=== PATIENT | male | born 1960 | race Two or more races ===

== ENCOUNTER 2019-12-27 21:44 | Emergency (ER) | payer OTHER ==
[~2019-12-27] VITALS: Ht 165.1 cm; Wt 81.6 kg
--- NOTE | 2019-12-27 21:57 | NUR ---
SEEN AND EXAMINED BY KELLY HARTMAN
--- NOTE | 2019-12-27 22:03 | NUR ---
PATIENT CAME TO ER BED 9 C/O RIGHT UPPER ABDOMINAL PAIN RADIATING TO THE LEFT SIDE. PATIENT STATES THAT HE IS ABLE TO URINATE (HE PROVIDED A URINE SAMPLE) AND LAST HAD A BOWEL MOVEMENT EARLIER TODAY. PATIENT STATES THAT WHENEVER HE HAS FOOD, HE FEELS BLOATED. AAOX4. NO SOB. BREATHING EVENLY AND UNLABORED ON ROOM AIR. CONNECTED TO THE MONITOR.
--- NOTE | 2019-12-27 22:06 | NUR ---
PATIENT DENIES NAUSEA, NOR DOES HE WANT PAIN MEDICATION AT THIS TIME.
--- NOTE | 2019-12-27 22:06 | NUR ---
URINE COLLECTED AND SENT TO THE LAB.
--- NOTE | 2019-12-27 22:09 | NUR ---
[employer]RIAL [employer]ODUCTION MANAGER AT BEDSIDE FOR BLOOD DRAW.
[2019-12-27 22:21] LABS: APPEARANCE,URINE CLEAR (CLEAR); BILIRUBIN,URINE SMALL (NEGATIVE); BLOOD, URINE NEGATIVE Ery/uL (NEGATIVE); COLOR,URINE YELLOW (YELLOW); KETONES,URINE NEGATIVE (NEGATIVE); LEUKOCYTE ESTERASE ,URINE NEGATIVE (NEGATIVE); NITRITE, URINE NEGATIVE (NEGATIVE); PROTEIN,URINE NEGATIVE (NEGATIVE); UGLUCOSE NEGATIVE (NEGATIVE); UROBILINOGEN,URINE 0.2 EU/dL (0.2)
[2019-12-27 22:37] LABS: BASOPHILS # (AUTO) 0.1 /CMM (0.0-0.2); BASOPHILS % (AUTO) 0.8 % (0.0-2.0); EOSINOPHILS % (AUTO) 2.8 % (0.0-6.0); HEMATOCRIT 43 % (39-51); HEMOGLOBIN 15.4 g/dL (13.5-17.5); LYMPHOCYTES # (AUTO) 2.7 /CMM (0.8-4.8); LYMPHOCYTES % (AUTO) 29.4 % (20.0-44.0); MEAN CORPUSCULAR HGB CONC 36 g/dl (31.0-36.0); MEAN CORPUSCULAR VOLUME 101 fL (80-96); MONOCYTES # (AUTO) 0.5 /CMM (0.1-1.30); MONOCYTES % (AUTO) 5.9 % (2.0-12.0); NEUTROPHILS # (AUTO) 5.6 /CMM (1.8-8.9); NEUTROPHILS % (AUTO) 61.1 % (43.0-81.0); PLATELET COUNT (AUTO) 160 /CMM (150-450); RED BLOOD CELL COUNT(AUTO) 4.27 MIL/uL (4.5-6.0); WHITE BLOOD COUNT (AUTO) 9.2 K/uL (4.3-11.0)
--- NOTE | 2019-12-27 22:38 | NUR ---
Dannielle ray in ED - 12/27/19 at 2239 by JULIANA US TECH FINSIHED WITH PROCEDURE.
[2019-12-27 22:39] LABS: ALBUMIN 4.2 g/dL (3.4-5.0); BILIRUBIN,DIRECT 0.4 mg/dL (0.0-0.2); CALCIUM, SERUM 9.1 mg/dL (8.5-10.1); CREATININE 1.1 mg/dL (0.6-1.3); POTASSIUM 3.9 mmol/L (3.5-5.1); TOTAL PROTEIN, SERUM 7.6 g/dL (6.4-8.2)
--- NOTE | 2019-12-27 22:44 | NUR ---
US AT BEDSIDE.
[2019-12-27 23:12] LABS: EOSINOPHILS % (MANUAL) 4 % (0-4); LYMPHOCYTES % (MANUAL) 25 % (16-48); MONOCYTES % (MANUAL) 8 % (0-11.0); NEUTROPHILS % (MANUAL) 63 (42-76)
--- NOTE | 2019-12-27 23:49 | NUR ---
Prescriptions provided and explained to the patient not to operate behind any machinery will taking presciption narcotics.
--- NOTE | 2019-12-27 23:49 | NUR ---
Patient discharged to home in stable condition. Written and verbal after care instructions given. Patient verbalizes understanding of instruction.
[2019-12-27 23:50] VITALS: BP 131/84
== END 2019-12-27 23:50 | disposition home or self-care (01) ==
LOC: ER 21:52
DX: R10.11 Right upper quadrant pain (principal); I10 Essential (primary) hypertension; E11.9 Type 2 diabetes mellitus without complications
CPT/HCPCS: 36415; 76705-TC; 80048-TC; 80076-TC; 81000-TC; 83690-TC; 85025-TC

== ENCOUNTER 2021-07-16 18:57 | Emergency (ER) | payer OTHER ==
[~2021-07-16] VITALS: Ht 180.3 cm; Wt 81.6 kg
--- NOTE | 2021-07-16 19:55 | NUR ---
PT A/O X4 C/O OF UPPER BILAT AND LOWER BILAT PAIN X 4 DAYS
[2021-07-16 20:48] LABS: ALBUMIN 3.6 g/dL (3.4-5.0); BILIRUBIN,TOTAL 2.4 mg/dL (0.2-1.0); CREATININE 1.2 mg/dL (0.6-1.3); POTASSIUM 4.1 mmol/L (3.5-5.1); TOTAL PROTEIN, SERUM 6.8 g/dL (6.4-8.2)
[2021-07-16 20:59] LABS: BASOPHILS % (AUTO) 0.4 % (0.0-2.0); EOSINOPHILS % (AUTO) 3.3 % (0.0-6.0); HEMATOCRIT 33 % (39-51); HEMOGLOBIN 11.9 g/dL (13.5-17.5); LYMPHOCYTES # (AUTO) 2.9 K/uL (0.8-4.8); LYMPHOCYTES % (AUTO) 32.7 % (20.0-44.0); MEAN CORPUSCULAR HGB CONC 36 g/dl (31.0-36.0); MEAN CORPUSCULAR VOLUME 102 fL (80-96); MONOCYTES # (AUTO) 0.5 K/uL (0.1-1.30); MONOCYTES % (AUTO) 5.1 % (2.0-12.0); NEUTROPHILS # (AUTO) 5.3 K/uL (1.8-8.9); NEUTROPHILS % (AUTO) 58.5 % (43.0-81.0); PLATELET COUNT (AUTO) 189 K/uL (150-450); RED BLOOD CELL COUNT(AUTO) 3.24 MIL/uL (4.5-6.0)
[2021-07-16 22:30] VITALS: BP 122/76
--- NOTE | 2021-07-16 22:48 | NUR ---
DISCHARGE INSTRUCTIONS GIVEN TO PT
== END 2021-07-16 22:30 | disposition home or self-care (01) ==
LOC: ER 19:01
DX: M79.10 Myalgia, unspecified site (principal); R53.1 Weakness; I10 Essential (primary) hypertension
CPT/HCPCS: 36415; 70450-TC; 80053-TC; 82550-TC; 85025-TC

== ENCOUNTER 2022-02-11 12:34 | Emergency (ER) | payer OTHER ==
[~2022-02-11] VITALS: Ht 167.6 cm; Wt 86.2 kg
--- NOTE | 2022-02-11 13:00 | NUR ---
DR VICTORIA AT BEDSIDE
[2022-02-11 13:18] LABS: BASOPHILS # (AUTO) 0.1 K/uL (0.0-0.2); BASOPHILS % (AUTO) 0.7 % (0.0-2.0); EOSINOPHILS % (AUTO) 1.1 % (0.0-6.0); HEMATOCRIT 41 % (39-51); HEMOGLOBIN 14.8 g/dL (13.5-17.5); LYMPHOCYTES # (AUTO) 1.6 K/uL (0.8-4.8); LYMPHOCYTES % (AUTO) 18.4 % (20.0-44.0); MEAN CORPUSCULAR HGB CONC 36 g/dl (31.0-36.0); MEAN CORPUSCULAR VOLUME 98 fL (80-96); MONOCYTES # (AUTO) 0.6 K/uL (0.1-1.30); MONOCYTES % (AUTO) 6.6 % (2.0-12.0); NEUTROPHILS # (AUTO) 6.4 K/uL (1.8-8.9); NEUTROPHILS % (AUTO) 73.2 % (43.0-81.0); PLATELET COUNT (AUTO) 135 K/uL (150-450); RED BLOOD CELL COUNT(AUTO) 4.17 MIL/uL (4.5-6.0); WHITE BLOOD COUNT (AUTO) 8.8 K/uL (4.3-11.0)
--- NOTE | 2022-02-11 13:22 | NUR ---
BIBFAMILY C/O WEAKNESS, HEADACHE, AND CHEST PRESSURE STARTED TODAY STARTED NEW MEDS FOR HTN YESTERDAY. PT IS A&OX4, BREATHING EVEN AND UNLABORED ON RA. PT ON MONITOR, VSS. PT CURRENTLY ENDORSES NO PAIN.
[2022-02-11 13:28] LABS: CALCIUM, SERUM 8.5 mg/dL (8.5-10.1); CARBON DIOXIDE 29 mmol/L (21-32); CHLORIDE 102 mmol/L (98-107); CREATININE 0.9 mg/dL (0.6-1.3); GLUCOSE 123 mg/dL (74-106); SODIUM SERUM 137 mmol/L (136-145); UREA NITROGEN, BLOOD 9 mg/dL (7-18)
[2022-02-11] MEDS ORDERED: BACL10TA PO (13:32)
[2022-02-11] MEDS ORDERED: OMEP20CA15 PO (13:32)
[2022-02-11] MEDS ORDERED: AMLO-212 PO (13:32)
[2022-02-11] MEDS ORDERED: LISI20TA30 PO (13:32)
[2022-02-11 13:33] LABS: ALANINE AMINOTRANSFERASE 79 U/L (12-78); ALBUMIN 4.1 g/dL (3.4-5.0); ALKALINE PHOSPHATASE 89 U/L (46-116); ASPARTATE AMINOTRANSFERASE 29 U/L (15-37); BILIRUBIN,DIRECT 0.4 mg/dL (0.0-0.2); BILIRUBIN,TOTAL 3.2 mg/dL (0.2-1.0); TOTAL PROTEIN, SERUM 7.4 g/dL (6.4-8.2)
[2022-02-11 15:31] VITALS: BP 123/80
--- NOTE | 2022-02-11 15:32 | NUR ---
Patient discharged to home in stable condition. Written and verbal after care instructions given. Patient verbalizes understanding of instruction.
== END 2022-02-11 15:30 | disposition home or self-care (01) ==
LOC: ER 12:38
DX: R11.0 Nausea (principal); I10 Essential (primary) hypertension; F17.200 Nicotine dependence, unspecified, uncomplicated; Z79.899 Other long term (current) drug therapy
CPT/HCPCS: 36415; 71045-TC; 80048-TC; 80076-TC; 84484-TC; 85025-TC